=== PATIENT | female | born 1940 | race Two or more races ===

== ENCOUNTER 2018-04-21 17:37 | Emergency (ER) | payer MEDICARE, MEDICAID ==
[~2018-04-21] VITALS: Ht 149.9 cm; Wt 50.0 kg
[2018-04-21] MEDS ORDERED: KETOROLAC 15MG/ML VIAL IV NR (22:24)
[2018-04-21] MEDS ORDERED: ONDANSETRON HCL 4MG/2ML INJ IV NR (22:24)
[2018-04-21 23:33] LABS: BASOPHILS % 0.5 % (0.0-2.0); EOSINOPHILS % 1.5 % (0.0-5.0); HEMATOCRIT. 40.6 % (36.0-48.0); HEMOGLOBIN. 13.5 g/dL (12.0-16.0); LYMPHOCYTES % 23.6 % (20.0-50.0); MEAN CORPUSCULAR HEMOGLOBIN 31.4 pg (28.0-32.0); MONOCYTES % 9.6 % (2.0-8.0); NEUTROPHILS % 64.8 % (40.0-76.0); PLATELET 275 x1000/uL (130-400); RED BLOOD CELL COUNT 4.32 mill/uL (4.2-5.4); RED CELL DISTRIBUTION WIDTH 12.3 % (11.6-14.6)
[2018-04-21 23:39] LABS: CHLORIDE 100 mEq/L (98-107)
[2018-04-21 23:47] LABS: CLARITY URINE CLEAR (CLEAR); COLOR URINE YELLOW (YELLOW); KETONES URINE NEGATIVE (NEGATIVE); LEUKOCYTE ESTERASE URINE NEGATIVE (NEGATIVE); NITRITE URINE NEGATIVE (NEGATIVE); OCCULT BLOOD URINE NEGATIVE (NEGATIVE); PROTEIN URINE 2+ (NEGATIVE); UROBILINOGEN URINE 0.2 E.U./dL (0.2-1.0)
[2018-04-22] MEDS ORDERED: IOHEXOL-300 100 ML BOTTLE ONE (01:31)
[2018-04-22 02:09] VITALS: BP 119/96
== END 2018-04-22 03:30 | disposition home or self-care (01) ==
LOC: ER 17:37
DX: K86.1 Other chronic pancreatitis (principal)
CPT/HCPCS: 36415; 71045; 74177; 80053; 81003; 83690; 85025; 86850; 86900; 86901; 96374; 96375; 99284; J1885; J2405; Q9967

== ENCOUNTER 2020-05-27 10:54 | Inpatient (IN) | payer MEDICARE, OTHER ==
[~2020-05-27] VITALS: Ht 144.8 cm; Wt 55.8 kg
[2020-05-27] MEDS ORDERED: FAMOTIDINE 20MG/2ML VIAL IV STA (11:23)
[2020-05-27] MEDS ORDERED: ONDANSETRON HCL 4MG/2ML INJ IV STA (11:23)
[2020-05-27] MEDS ORDERED: LORAZEPAM 2MG/ML CPJ IV ONE (11:30)
[2020-05-27 11:44] LABS: BASOPHILS % 0.2 % (0.0-2.0); HEMATOCRIT. 43.2 % (36.0-48.0); HEMOGLOBIN. 14.8 g/dL (12.0-16.0); LYMPHOCYTES % 7.9 % (20.0-50.0); MEAN CORPUSCULAR HEMOGLOBIN 31.8 pg (28.0-32.0); MEAN CORPUSCULAR VOLUME 92.8 fL (81.0-99.0); MONOCYTES % 4.3 % (2.0-8.0); NEUTROPHILS % 87.6 % (40.0-76.0); PLATELET 207 x1000/uL (130-400); RED BLOOD CELL COUNT 4.66 mill/uL (4.2-5.4); RED CELL DISTRIBUTION WIDTH 12.8 % (11.6-14.6)
[2020-05-27 11:51] LABS: CHLORIDE 100 mEq/L (98-107)
[2020-05-27 11:54] LABS: PROTHROMBIN TIME 10.6 sec (9.6-11.0)
[2020-05-27] MEDS ORDERED: SODIUM CHLORIDE 0.9% 500 ML IV ONE (13:30)
[2020-05-27] MEDS ORDERED: DILTIAZEM HCL 5MG/ML 5ML VIAL IV ONE (16:30)
[2020-05-27] MEDS ORDERED: IPRATROPIUM BROMIDE (0.02%) 0.5MG/2.5ML NEB HHN PRN (16:30)
[2020-05-27 17:50] LABS: CLARITY URINE CLOUDY (CLEAR); COLOR URINE YELLOW (YELLOW); KETONES URINE NEGATIVE (NEGATIVE); LEUKOCYTE ESTERASE URINE TRACE (NEGATIVE); NITRITE URINE NEGATIVE (NEGATIVE); OCCULT BLOOD URINE 1+ (NEGATIVE); PH URINE 6.5 (4.5-8.0); PROTEIN URINE 4+ (NEGATIVE); SPECIFIC GRAVITY URINE 1.016 (1.005-1.030); UROBILINOGEN URINE 0.2 E.U./dL (0.2-1.0)
[2020-05-27] MEDS: DILTIAZEM HCL 60MG TABLET PO SCH (18:09)
[2020-05-27] MEDS: ENOXAPARIN 60MG/0.6ML SYR SUBCUT SCH (18:09)
[2020-05-27 20:00] VITALS: BP 139/85
[2020-05-27] MEDS ORDERED: METO-539 PO (20:50)
[2020-05-27] MEDS ORDERED: LOSA100T32 PO (20:50)
[2020-05-27] MEDS ORDERED: ATOR10TA69 PO (20:50)
[2020-05-27] MEDS ORDERED: AMLO5TAB88 PO (20:50)
[2020-05-28] VITALS: BP 122/81
[2020-05-28] MEDS: ONDANSETRON HCL 4MG/2ML INJ IV PRN (00:39)
[2020-05-28] MEDS: DILTIAZEM HCL 60MG TABLET PO SCH ×2 (00:39→05:06)
[2020-05-28 04:00] VITALS: BP 122/79
[2020-05-28 08:00] VITALS: BP 94/49
[2020-05-28 12:00] VITALS: BP 122/74
[2020-05-28] MEDS ORDERED: METOPROLOL TARTRATE 5MG/5ML VIAL IV PRN (13:00)
[2020-05-28] MEDS: METOPROLOL TARTRATE 50MG TABLET PO SCH ×2 (14:00→22:00)
[2020-05-28 16:00] VITALS: BP 100/60
[2020-05-28 16:52] LABS: BASOPHILS % 0.7 % (0.0-2.0); EOSINOPHILS % 0.3 % (0.0-5.0); HEMATOCRIT. 40.7 % (36.0-48.0); HEMOGLOBIN. 13.7 g/dL (12.0-16.0); LYMPHOCYTES % 16.9 % (20.0-50.0); MEAN CORPUSCULAR HEMOGLOBIN 30.9 pg (28.0-32.0); MEAN CORPUSCULAR VOLUME 92.2 fL (81.0-99.0); MEAN PLATELET VOLUME 10.7 fl (7.4-10.4); MONOCYTES % 7.7 % (2.0-8.0); NEUTROPHILS % 74.4 % (40.0-76.0); PLATELET 210 x1000/uL (130-400); RED BLOOD CELL COUNT 4.42 mill/uL (4.2-5.4); RED CELL DISTRIBUTION WIDTH 12.8 % (11.6-14.6)
[2020-05-28] MEDS: ENOXAPARIN 60MG/0.6ML SYR SUBCUT SCH (17:36)
[2020-05-28 20:00] VITALS: BP 112/69
[2020-05-29] VITALS: BP 114/77
[2020-05-29 04:00] VITALS: BP 115/66
[2020-05-29 08:00] VITALS: BP 107/66
[2020-05-29] MEDS: METOPROLOL TARTRATE 50MG TABLET PO SCH ×2 (08:55→20:57)
[2020-05-29] MEDS: ONDANSETRON HCL 4MG/2ML INJ IV PRN (09:07)
[2020-05-29 12:00] VITALS: BP 112/71
[2020-05-29 16:00] VITALS: BP 153/54
[2020-05-29] MEDS: ENOXAPARIN 60MG/0.6ML SYR SUBCUT SCH (16:43)
[2020-05-29 20:00] VITALS: BP 106/68
[2020-05-30] VITALS: BP 112/77
[2020-05-30 04:00] VITALS: BP 126/71
[2020-05-30] MEDS: ACETAMINOPHEN 325MG TABLET PO PRN (04:38)
[2020-05-30 08:00] VITALS: BP 110/70
[2020-05-30] MEDS ORDERED: CEFTRIAXONE 1 G PREMIX 50 ML IV SCH (08:00)
[2020-05-30] MEDS: METOPROLOL TARTRATE 50MG TABLET PO SCH ×2 (08:35→23:11)
[2020-05-30] MEDS: CEFTRIAXONE 1,000 MG in DEXTROSE 5% WATER 50 ML IV SCH (10:26)
[2020-05-30] MEDS ORDERED: METOPROLOL TARTRATE 25MG TABLET PO NR (11:00)
[2020-05-30 11:21] LABS: BASOPHILS % 0.6 % (0.0-2.0); EOSINOPHILS % 1.5 % (0.0-5.0); HEMATOCRIT. 42.1 % (36.0-48.0); HEMOGLOBIN. 14.1 g/dL (12.0-16.0); LYMPHOCYTES % 16.7 % (20.0-50.0); MEAN CORPUSCULAR HEMOGLOBIN 31.6 pg (28.0-32.0); MEAN CORPUSCULAR VOLUME 94.3 fL (81.0-99.0); MEAN PLATELET VOLUME 11.1 fl (7.4-10.4); MONOCYTES % 8.4 % (2.0-8.0); NEUTROPHILS % 72.8 % (40.0-76.0); PLATELET 184 x1000/uL (130-400); RED BLOOD CELL COUNT 4.47 mill/uL (4.2-5.4); RED CELL DISTRIBUTION WIDTH 12.8 % (11.6-14.6)
[2020-05-30 12:00] VITALS: BP 126/56
[2020-05-30 16:00] VITALS: BP 125/86
[2020-05-30] MEDS: ENOXAPARIN 60MG/0.6ML SYR SUBCUT SCH (17:30)
[2020-05-30 21:25] VITALS: BP 140/67
[2020-05-31] VITALS: BP 124/73
[2020-05-31 04:00] VITALS: BP 157/62
[2020-05-31 08:00] VITALS: BP 147/66
[2020-05-31] MEDS: METOPROLOL TARTRATE 50MG TABLET PO SCH ×2 (09:00→21:00)
[2020-05-31] MEDS: CEFTRIAXONE 1,000 MG in DEXTROSE 5% WATER 50 ML IV SCH (09:01)
[2020-05-31 12:00] VITALS: BP 151/73
[2020-05-31 16:00] VITALS: BP 129/72
[2020-05-31 16:09] LABS: BASOPHILS % 0.9 % (0.0-2.0); EOSINOPHILS % 2.9 % (0.0-5.0); HEMATOCRIT. 37.7 % (36.0-48.0); HEMOGLOBIN. 12.8 g/dL (12.0-16.0); LYMPHOCYTES % 17.5 % (20.0-50.0); MEAN CORPUSCULAR HEMOGLOBIN 31.5 pg (28.0-32.0); MEAN CORPUSCULAR VOLUME 92.7 fL (81.0-99.0); MEAN PLATELET VOLUME 10.9 fl (7.4-10.4); MONOCYTES % 7.5 % (2.0-8.0); NEUTROPHILS % 71.2 % (40.0-76.0); PLATELET 175 x1000/uL (130-400); RED BLOOD CELL COUNT 4.07 mill/uL (4.2-5.4); RED CELL DISTRIBUTION WIDTH 12.5 % (11.6-14.6)
[2020-05-31 16:15] LABS: CHLORIDE 103 mEq/L (98-107)
[2020-05-31] MEDS: ENOXAPARIN 60MG/0.6ML SYR SUBCUT SCH (17:16)
[2020-05-31 20:00] VITALS: BP 135/67
[2020-05-31] MEDS ORDERED: ZOLPIDEM TARTRATE 5MG TABLET PO PRN (21:00)
[2020-06-01] VITALS (14 sets, daily range): BP systolic 128–193; BP diastolic 66–103
[2020-06-01] MEDS: CEFTRIAXONE 1,000 MG in DEXTROSE 5% WATER 50 ML IV SCH (07:55)
[2020-06-01] MEDS: METOPROLOL TARTRATE 50MG TABLET PO SCH ×2 (08:01→19:35)
[2020-06-01] MEDS ORDERED: MIDAZOLAM HCL 2 MG/2 ML VIAL ONE (15:01)
[2020-06-01] MEDS ORDERED: LIDOCAINE HCL 1% 20ML VIAL (Pyxis) INJ ONE (15:02)
[2020-06-01] MEDS ORDERED: GENTAMICIN SULF 40MG/ML 2ML VIAL ONE (15:02)
[2020-06-01] MEDS ORDERED: FENTANYL CITRATE/PF 50MCG/ML 2ML VIAL ONE (15:02)
[2020-06-01] MEDS ORDERED: GENTAMICIN/NS IRRIGATION 0 ML IR ONE (15:03)
[2020-06-01] MEDS ORDERED: IODIXANOL 320MG/ML 100 ML BOTTLE IV ONE (15:22)
[2020-06-01] MEDS ORDERED: CEFAZOLIN 1000MG PREMIX 50 ML IV ONE (15:28)
[2020-06-01] MEDS ORDERED: MIDAZOLAM HCL 5 MG/5 ML VIAL ONE (16:50)
[2020-06-01] MEDS ORDERED: FENTANYL CITRATE/PF 50MCG/ML 5ML VIAL ONE (16:51)
[2020-06-01] MEDS: ENOXAPARIN 60MG/0.6ML SYR SUBCUT SCH (17:30)
[2020-06-01] MEDS ORDERED: HYDRALAZINE 20MG/ML VIAL IV PRN (19:49)
[2020-06-01] MEDS: ACETAMINOPHEN 325MG TABLET PO PRN (19:49)
[2020-06-01] MEDS: CEFAZOLIN 1000MG PREMIX 50 ML IV SCH (22:36)
[2020-06-02] VITALS (10 sets, daily range): BP systolic 109–173; BP diastolic 55–140
[2020-06-02] MEDS: CEFAZOLIN 1000MG PREMIX 50 ML IV SCH (05:54)
[2020-06-02] MEDS ORDERED: METO-539 PO (09:57)
[2020-06-02] MEDS ORDERED: APIX5TAB MT (09:57)
[2020-06-02] MEDS: METOPROLOL TARTRATE 50MG TABLET PO SCH (10:48)
[2020-06-02] MEDS: CEFTRIAXONE 1,000 MG in DEXTROSE 5% WATER 50 ML IV SCH (11:32)
[2020-06-02] MEDS: ENOXAPARIN 60MG/0.6ML SYR SUBCUT SCH (11:32)
== END 2020-06-02 13:02 | disposition home or self-care (01) | DRG 854 ==
LOC: EDBEDREQTM 11:57 → EDBEDREQ 11:57 → ER 12:32 → 8WST 13:17 → EDBEDREQTM 13:24 → EDBEDREQ 13:24 → CANRESERV 14:41 → ENRESERV 14:41 → EDBEDREQSVC 16:20 → ENRESERV 18:25 → 3WST 06-01 17:18
PROVIDERS: ADMIT Internal Medicine; ATTEND Internal Medicine
PROC: 0JH606Z Insertion of Pacemaker, Dual Chamber into Chest Subcutaneous Tissue and Fascia, Open Approach (ICD-10-PCS; principal; 2020-06-02)
PROC: 02H63JZ Insertion of Pacemaker Lead into Right Atrium, Percutaneous Approach (ICD-10-PCS; 2020-06-02)
PROC: 02HK3JZ Insertion of Pacemaker Lead into Right Ventricle, Percutaneous Approach (ICD-10-PCS; 2020-06-02)
DX: A41.9 Sepsis, unspecified organism (principal); E87.1 Hypo-osmolality and hyponatremia; N39.0 Urinary tract infection, site not specified; I49.5 Sick sinus syndrome; G90.8 Other disorders of autonomic nervous system; I48.0 Paroxysmal atrial fibrillation; E78.00 Pure hypercholesterolemia, unspecified; E78.5 Hyperlipidemia, unspecified; I10 Essential (primary) hypertension; B96.1 Klebsiella pneumoniae [K. pneumoniae] as the cause of diseases classified elsewhere; Z79.899 Other long term (current) drug therapy; Z20.822 Contact with and (suspected) exposure to COVID-19
CPT/HCPCS: 33207; 36415; 71045; 74176; 75820; 80048; 80053; 80061; 81003; 82962; 83735; 84145; 84443; 84484; 85025; 87077; 87186; 87426; 93005; 93306; 99285; A4565; C1785; C1893; C1898; J0690; J0696; J1580; J1650; J2060; J2250; J2405; J3010; J3490; J7040; J7060; Q9967

== ENCOUNTER 2022-02-10 10:59 | Emergency (ER) | payer MEDICARE, OTHER ==
[~2022-02-10] VITALS: Ht 149.9 cm; Wt 57.0 kg
[~2022-02-10 10:59] MED LIST: ATOR10TA69 PO; LOSA100T32 PO; METO-539 PO
[2022-02-10 11:19] VITALS: BP 150/88
[2022-02-10] MEDS ORDERED: CLIN-194 MT (13:39)
== END 2022-02-10 14:31 | disposition home or self-care (01) ==
LOC: ER 10:59
DX: H04.302 Unspecified dacryocystitis of left lacrimal passage (principal); I10 Essential (primary) hypertension; Z95.0 Presence of cardiac pacemaker; Z79.899 Other long term (current) drug therapy
CPT/HCPCS: 99283

== ENCOUNTER 2024-01-16 07:52 | Inpatient (IN) | payer MEDICARE, OTHER ==
[~2024-01-16] VITALS: Ht 152.4 cm; Wt 62.3 kg
[~2024-01-16 07:52] MED LIST changes: +CLIN-194 MT; -LOSA100T32 PO; +LOSA100T33 PO
[2024-01-16] MEDS: DILTIAZEM HCL 5MG/ML 5ML VIAL IV NR (08:59)
[2024-01-16 09:12] LABS: BASOPHILS % 0.4 % (0.0-2.0); EOSINOPHILS % 1.1 % (0.0-5.0); HEMATOCRIT. 38.7 % (36.0-48.0); HEMOGLOBIN. 12.5 g/dL (12.0-16.0); LYMPHOCYTES % 7.2 % (20.0-50.0); MEAN CORPUSCULAR HEMOGLOBIN 31.1 pg (28.0-32.0); MEAN CORPUSCULAR HGB CONC 32.3 g/dL (31.0-37.0); MEAN CORPUSCULAR VOLUME 96.3 fL (81.0-99.0); MEAN PLATELET VOLUME 10.1 fl (7.4-10.4); MONOCYTES % 5.3 % (2.0-8.0); PLATELET 212 x1000/uL (130-400); RED BLOOD CELL COUNT 4.02 mill/uL (4.2-5.4); RED CELL DISTRIBUTION WIDTH 12.6 % (11.6-14.6); WHITE BLOOD COUNT 11.4 x1000/uL (4.5-11.0)
[2024-01-16] MEDS: DILTIAZEM HCL 120MG CAPSULE ER 24HR PO ONE (09:19)
[2024-01-16 09:23] LABS: CHLORIDE 106 mEq/L (98-107); POTASSIUM 4.9 mEq/L (3.5-5.1); SODIUM 136 mEq/L (136-145)
[2024-01-16 09:24] LABS: CARBON DIOXIDE 25 mEq/L (21-32)
[2024-01-16 09:29] LABS: CREATININE 1.3 mg/dL (0.6-1.0); GLUCOSE 234 mg/dL (70-105); UREA NITROGEN BLOOD 28 mg/dL (9-23)
[2024-01-16 09:31] LABS: TROPONIN I HIGH SENSITIVITY 7 ng/L (3.0-34)
[2024-01-16] MEDS ORDERED: ONDANSETRON HCL 4MG/2ML INJ IV PRN (15:30)
[2024-01-16] MEDS: FUROSEMIDE 20MG/2ML VIAL IVP NR (16:15)
[2024-01-16] MEDS: ENOXAPARIN 80MG/0.8ML SYR SUBCUT SCH (16:16)
[2024-01-16 16:17] VITALS: BP 169/84; PULSE 76; RESP 18; TEMP 36.83628; O2SAT 98
[2024-01-16] MEDS ORDERED: LOSA100T33 MT (16:36)
[2024-01-16] MEDS ORDERED: APIX2.5T PO (16:36)
[2024-01-16] MEDS ORDERED: ASPI-1497 MT (16:36)
[2024-01-16] MEDS ORDERED: LORAZEPAM 0.5MG TABLET PO PRN (17:29)
[2024-01-16 17:37] VITALS: BP 169/84; PULSE 76; RESP 18; TEMP 36.8628
[2024-01-16 18:40] LABS: CLARITY URINE CLEAR (CLEAR); COLOR URINE YELLOW (YELLOW); GLUCOSE URINE NEGATIVE (NEGATIVE); KETONES URINE NEGATIVE (NEGATIVE); LEUKOCYTE ESTERASE URINE NEGATIVE (NEGATIVE); NITRITE URINE NEGATIVE (NEGATIVE); OCCULT BLOOD URINE NEGATIVE (NEGATIVE); PH URINE 5.5 (4.5-8.0); PROTEIN URINE 3+ (NEGATIVE); SPECIFIC GRAVITY URINE 1.012 (1.005-1.030); UROBILINOGEN URINE 0.2 E.U./dL (0.2-1.0)
[2024-01-16 18:50] LABS: *AMPHETAMINES SCREEN URINE NEGATIVE (NEGATIVE); *BARBITURATES SCREEN URINE NEGATIVE (NEGATIVE); *BENZODIAZEPINES SCREEN URINE NEGATIVE (NEGATIVE); *COCAINE SCREEN URINE NEGATIVE (NEGATIVE); CANNABINOID URINE SCREEN NEGATIVE (NEGATIVE); ECSTASY MDMA SCREEN URINE NEGATIVE (NEGATIVE); METHADONE URINE SCREEN NEGATIVE (NEGATIVE); OPIATES URINE SCREEN NEGATIVE (NEGATIVE); PHENCYCLIDINE URINE SCREEN NEGATIVE (NEGATIVE)
[2024-01-16 19:13] LABS: BACTERIA URINE 3+; RBC URINE 0-2 /hpf (0-2); SQUAMOUS EPITHELIAL CELL URINE 1+ /lpf (RARE/1+)
[2024-01-16 20:00] VITALS: BP 101/71; PULSE 103; RESP 18; TEMP 36.50292; O2SAT 98
[2024-01-16] MEDS: ATORVASTATIN CALCIUM 10MG TABLET PO SCH (20:49)
[2024-01-16] MEDS: ACETAMINOPHEN 325MG TABLET PO PRN (20:50)
[2024-01-16] MEDS: METOPROLOL TARTRATE 25MG TABLET PO SCH (20:50)
[2024-01-16 23:48] LABS: TROPONIN I HIGH SENSITIVITY 10 ng/L (3.0-34)
[2024-01-17] VITALS: BP 129/77; PULSE 66; RESP 19; TEMP 36.114; O2SAT 99
[2024-01-17 00:25] LABS: CREATINE KINASE 40 IU/L (34-145)
[2024-01-17 04:00] VITALS: BP 142/70; PULSE 64; RESP 18; TEMP 36.50292; O2SAT 98
[2024-01-17 07:07] LABS: BASOPHILS % 0.4 % (0.0-2.0); EOSINOPHILS % 1.3 % (0.0-5.0); HEMATOCRIT. 37.1 % (36.0-48.0); HEMOGLOBIN. 12.2 g/dL (12.0-16.0); LYMPHOCYTES % 9.6 % (20.0-50.0); MEAN CORPUSCULAR HEMOGLOBIN 31.7 pg (28.0-32.0); MEAN CORPUSCULAR HGB CONC 32.8 g/dL (31.0-37.0); MEAN CORPUSCULAR VOLUME 96.6 fL (81.0-99.0); MEAN PLATELET VOLUME 11.2 fl (7.4-10.4); MONOCYTES % 7.3 % (2.0-8.0); NEUTROPHILS % 81.4 % (40.0-76.0); PLATELET 195 x1000/uL (130-400); RED BLOOD CELL COUNT 3.84 mill/uL (4.2-5.4); RED CELL DISTRIBUTION WIDTH 12.7 % (11.6-14.6); WHITE BLOOD COUNT 10.1 x1000/uL (4.5-11.0)
[2024-01-17 07:10] LABS: TROPONIN I HIGH SENSITIVITY 9 ng/L (3.0-34)
[2024-01-17 07:12] LABS: CREATINE KINASE 41 IU/L (34-145)
[2024-01-17 07:18] LABS: POTASSIUM 4.6 mEq/L (3.5-5.1)
[2024-01-17 07:19] LABS: CALCIUM 9.8 mg/dL (8.7-10.4)
[2024-01-17 07:24] LABS: CREATININE 1.5 mg/dL (0.6-1.0)
[2024-01-17 08:00] VITALS: BP 134/88; PULSE 60; RESP 17; TEMP 36.50292; O2SAT 98
[2024-01-17] MEDS: PANTOPRAZOLE SODIUM 40 MG/VIAL IV SCH (09:51)
[2024-01-17] MEDS: LOSARTAN 100 MG TABLET PO SCH (09:51)
[2024-01-17 12:00] VITALS: BP 117/75; PULSE 76; RESP 17; TEMP 36.50292; O2SAT 99
[2024-01-17] MEDS ORDERED: IPRATROPIUM/ALBUTEROL 0.5-3(2.5)MG/3ML NEB HHN PRN (15:30)
[2024-01-17 16:00] VITALS: BP 137/62; PULSE 101; RESP 18; TEMP 36.50292; O2SAT 99
[2024-01-17] MEDS: MONTELUKAST SODIUM 10MG TABLET PO SCH (16:52)
[2024-01-17 20:00] VITALS: BP 147/74; PULSE 76; RESP 20; TEMP 36.33624; O2SAT 99
[2024-01-17] MEDS: FAMOTIDINE 20MG TABLET PO SCH (21:41)
[2024-01-17] MEDS: APIXABAN 2.5 MG TABLET PO SCH (21:41)
[2024-01-17] MEDS: LORATADINE 10MG TABLET PO SCH (21:42)
[2024-01-17] MEDS: FLUTICASONE PROPIONATE 50MCG/SPRAY BOTTLE BOTHNSTRLS SCH (21:43)
[2024-01-18] VITALS: BP 141/88; PULSE 90; RESP 18; TEMP 36.3918; O2SAT 96
[2024-01-18 04:00] VITALS: BP 144/78; PULSE 95; RESP 20; TEMP 36.50292; O2SAT 100
[2024-01-18 08:00] VITALS: BP 143/87; PULSE 86; RESP 20; TEMP 36.114; O2SAT 99
[2024-01-18 12:00] VITALS: BP 140/82; PULSE 88; RESP 18; TEMP 36.114; O2SAT 98
[2024-01-18 16:00] VITALS: BP 154/90; PULSE 95; RESP 19; TEMP 36.114; O2SAT 98
[2024-01-18] MEDS: FUROSEMIDE 20MG/2ML VIAL IVP NR (16:55)
[2024-01-18] MEDS: METOPROLOL TARTRATE 100MG TABLET PO SCH (16:59)
[2024-01-18 20:00] VITALS: BP 121/76; PULSE 90; RESP 18; TEMP 36.44736; O2SAT 98
[2024-01-18] MEDS: ZOLPIDEM TARTRATE 5MG TABLET PO PRN (21:03)
[2024-01-19] VITALS: BP 128/77; PULSE 92; RESP 18; TEMP 36.33624; O2SAT 99
[2024-01-19 04:00] VITALS: BP 122/74; PULSE 85; RESP 18; TEMP 36.114; O2SAT 99
[2024-01-19 08:00] VITALS: BP 129/89; PULSE 116; RESP 18; TEMP 36.55848; O2SAT 95
[2024-01-19] MEDS: MULTIVITAMINS,THER W-MINERALS TABLET PO SCH (08:29)
[2024-01-19 12:00] VITALS: BP 129/69; PULSE 84; RESP 18; TEMP 36.44736; O2SAT 95
[2024-01-19] MEDS ORDERED: CLAR10 PO (15:41)
[2024-01-19] MEDS ORDERED: APIX2.5T PO (15:41)
[2024-01-19] MEDS ORDERED: FURO-152 MT (15:41)
[2024-01-19] MEDS ORDERED: METO100T16 PO (15:41)
[2024-01-19 16:00] VITALS: BP 148/71; PULSE 105; RESP 18; TEMP 36.61404; O2SAT 95
[2024-01-19 16:44] VITALS: BP 148/71; PULSE 105; TEMP 97.9; O2SAT 95
[2024-01-19] MEDS ORDERED: DILTIAZEM HCL 30MG TABLET PO SCH (22:00)
== END 2024-01-19 19:01 | disposition home health service (06) | DRG 291 ==
LOC: ER 08:04 → 5WST 12:53 → EDBEDREQTM 12:55 → EDBEDREQ 12:55 → 7WST 16:03
PROVIDERS: ADMIT Internal Medicine; ATTEND Internal Medicine
DX: I11.0 Hypertensive heart disease with heart failure (principal); I50.31 Acute diastolic (congestive) heart failure; J96.01 Acute respiratory failure with hypoxia; I48.20 Chronic atrial fibrillation, unspecified; J45.909 Unspecified asthma, uncomplicated; J98.4 Other disorders of lung; K21.9 Gastro-esophageal reflux disease without esophagitis; E78.5 Hyperlipidemia, unspecified; N30.90 Cystitis, unspecified without hematuria; F03.90 Unspecified dementia, unspecified severity, without behavioral disturbance, psychotic disturbance, mood disturbance, and anxiety; Z95.0 Presence of cardiac pacemaker
CPT/HCPCS: 36415; 71045; 80048; 80305; 81003; 82550; 83880; 84484; 85025; 86705; 87340; 93005; 93306; 93970; 99291; J1650; J1940; J2470; J3490